=== PATIENT | female | born 1995 ===

== ENCOUNTER 2017-11-12 15:05 | Emergency (ER) | payer BC ==
--- NOTE | 2017-11-12 15:55 | UC ---
Headache HPI - HPI Summary HPI Summary: 22 yo female with mild headache x 2 days holocranial with occassion sharp right occipital pulsing pain that lasts seconds no trauma no f/c no sinus issues this is different from her typical migraine [place] last month she had a tension [place] that lasted 2 weeks - History Of Current Complaint Chief Complaint: UCHeadache Stated Complaint: HEADACHE, AND NECK TENSION Time Seen by Provider: 11/12/17 15:38 Hx Obtained From: Patient Hx Last Menstrual Period: 10/28/17 Onset/Duration: Sudden Onset, Gradual Onset Onset Of Symptoms: Sudden Initially Headache Was: "Worst Headache Ever" Pain Intensity: 3 Pain Scale Used: 0-10 Numeric Timing: Constant Character: Dull Location of Headache: Diffuse Aggravating Factor(s): Nothing Allevating Factor(s): Nothing Associated Signs And Symptoms: Positive: Negative - Allergies/Home Medications Allergies/Adverse Reactions: Allergies Allergy/AdvReac Type Severity Reaction Status Date / Time No Known Allergies Allergy Verified 11/12/17 15:21 Home Medications: Home Medications NK [No Home Medications Reported] 11/12/17 [History Confirmed 11/12/17] PMH/Surg Hx/FS Hx/Imm Hx Previously Healthy: Yes - Surgical History Surgical History: None - Family History Known Family History: Positive: Hypertension Negative: Cardiac Disease, Diabetes - Social History Alcohol Use: Occasionally Substance Use Type: None Smoking Status (MU): Never Smoked Tobacco Review of Systems Constitutional: Negative Skin: Negative Eyes: Negative ENT: Negative Respiratory: Negative Cardiovascular: Negative Gastrointestinal: Negative Genitourinary: Negative Motor: Negative Neurovascular: Negative Musculoskeletal: Negative Neurological: Headache Psychological: Negative Is Patient Immunocompromised?: No All Other Systems Reviewed And Are Negative: Yes Physical Exam Triage Information Reviewed: Yes Appearance: Well-Appearing, No Pain Distress, Well-Nourished Vital Signs: Initial Vital Signs Temp 98.1 F 11/12/17 15:11 Pulse 82 11/12/17 15:11 Resp 18 11/12/17 15:11 BP 110/64 11/12/17 15:11 Pulse Ox 100 11/12/17 15:11 Vital Signs Reviewed: Yes Eyes: Positive: Conjunctiva Clear, Other: - EOMI/PERRL/fund -benign ENT: Positive: Hearing grossly normal, Pharynx normal, Pharyngeal erythema, Nasal congestion, TMs normal Neck: Positive: Supple, Nontender, No Lymphadenopathy Respiratory: Positive: Lungs clear, Normal breath sounds, No respiratory distress, No accessory muscle use Cardiovascular: Positive: RRR, No Murmur Neurological: Positive: Alert, Muscle Tone Normal, Other: - GCS 15/15 Diagnostics - Radiology No standard instances Xray Interpretation: No Acute Changes - normal CT of brain Radiology Interpretation Completed By: Radiologist Headache Course/Dx - Differential Dx/Diagnosis Provider Diagnoses: acute headache of uncertain cause Discharge - Sign-Out/Discharge Documenting (check all that apply): Discharge/Admit/Transfer - Discharge Plan Condition: Stable Disposition: HOME Patient Education Materials: Acute Headache (ED) Referrals: No Primary Care Phys,NOPCP [Primary Care Provider] - Devon Joe MD [Medical Doctor] - If Needed (I suggest you make an appt to follow up with a neurologis) Additional Instructions: advil 3 pills 4x day as needed for headache or aleve 2 pills twice daily as needed for headache you can also take tylenol if the above does not help recheck for new or worsening symptoms - Billing Disposition and Condition Condition: STABLE Disposition: HOME
--- NOTE | 2017-11-12 16:16 | RAD ---
HISTORY: Headache COMPARISONS: None TECHNIQUE: Multiple contiguous axial CT scans were obtained of the head without intravenous contrast. FINDINGS: HEMORRHAGE/INFARCT: There is no hemorrhage or acute infarct. MASSES/SHIFT: There is no mass or shift. EXTRA-AXIAL SPACES: There are no extra-axial fluid collections. SULCI AND VENTRICLES: The sulci and ventricles are normal in size and position for the patient's stated age. CEREBRUM: There are no focal parenchymal abnormalities. BRAINSTEM: There are no focal parenchymal abnormalities. CEREBELLUM: There are no focal parenchymal abnormalities. VESSELS: The vessels are grossly normal. PARANASAL SINUSES: The paranasal sinuses are clear. ORBITS: The orbits are unremarkable. BONES AND SOFT TISSUE: No bone or soft tissue abnormalities are noted. OTHER: None IMPRESSION: NO ACUTE INTRACRANIAL PATHOLOGY.
== END 2017-11-12 16:39 | disposition home or self-care (01) ==
LOC: UCEAST 15:05
DX: R51 Headache (principal)
CPT/HCPCS: 70450; 99201; G0463